=== PATIENT | female | born 1990 | race Caucasian/White ===

== ENCOUNTER 2016-10-05 09:39 | Emergency (ER) | payer OTHER, SELFPAY ==
[2016-10-05 09:57] VITALS: BP 122/90; PULSE 100; RESP 16; TEMP 98.2; O2SAT 100
--- NOTE | 2016-10-05 10:14 | C.PDOC ---
History Of Present Illness NEW ONSET R FACIAL SWELL THIS MORNING. 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 DENIES DENTAL PAIN, FEVER, OTHER ASSOC SX. PS WENT TO AN URGENT CARE, WAS GIVEN AUGMENTIN DOSE AND ADVISED TO GO TO ER. EXAM NONTOXIC NAD HEENT MILD SWELL R FACE LOWER. NO DENTAL ABSCESS, TEND. +MISSING FILLING TOP R INCISOR MDM ADVISED FU DENTIST. Time Seen by Provider: 10/05/16 10:00 Chief Complaint (Nursing): Abnormal Skin Integrity History Per: Patient History/Exam Limitations: no limitations Past Medical History Reviewed: Historical Data, Nursing Documentation, Vital Signs Vital Signs: Last Vital Signs Temp 98.2 F 10/05/16 09:53 Pulse 100 H 10/05/16 09:53 Resp 16 10/05/16 09:53 BP 122/90 10/05/16 09:53 Pulse Ox 100 10/05/16 10:23 - Medical History PMH: Back Problems (hernated disc) Surgical History: Back Surgery, Cholecystectomy Family History: States: Unknown Family Hx - Social History Hx Tobacco Use: No Hx Alcohol Use: No Hx Substance Use: No - Immunization History Hx Tetanus Toxoid Vaccination: Yes Hx Influenza Vaccination: No Hx Pneumococcal Vaccination: No Review Of Systems Except As Marked, All Systems Reviewed And Found Negative. Constitutional: Negative for: Fever ENT: Positive for: Other Cardiovascular: Negative for: Chest Pain Gastrointestinal: Negative for: Vomiting Musculoskeletal: Negative for: Back Pain Physical Exam - Physical Exam Appears: Non-toxic, No Acute Distress Skin: Warm, Dry, No Rash Head: Atraumatic, Swelling Eye(s): bilateral: Normal Inspection, PERRL Nose: Normal Oral Mucosa: Moist Lips: Normal Appearing Teeth: Other (MILD SWELL R FACE LOWER. NO DENTAL ABSCESS, TEND. +MISSING FILLING TOP R INCISOR) Neck: Normal ROM Chest: Symmetrical Cardiovascular: No Murmur Respiratory: No Accessory Muscle Use Extremity: Normal ROM Neurological/Psych: Oriented x3 ED Course And Treatment O2 Sat by Pulse Oximetry: 100 Progress - Data Reviewed Data Reviewed: Old records Medical Decision Making Medical Decision Making: ADVISED FU DENTIST. Disposition Counseled Patient/Family Regarding: Diagnosis, Need For Followup, Rx Given - Disposition Referrals: YOUR,DENTIST [Other] Disposition: HOME/ ROUTINE Disposition Time: 10:22 Condition: GOOD Prescriptions: Acetaminophen/Codeine [Tylenol/Codeine 300 MG/30 MG] 2 tab PO Q6H #20 tab Amoxicillin/Clavulanate [Augmentin 875 MG-125 MG] 1 tab PO BID #14 tab Ibuprofen [Motrin] 600 mg PO Q6 #30 tab Instructions: Dental Caries (ED) - Clinical Impression Clinical Impression: Facial swelling - Scribe Statement Aneglique Luna All medical record entries made by the Scribe were at my direction and personally dictated by me. I have reviewed the chart and agree that the record accurately reflects my personal performance of the history, physical exam, medical decision making, and the department course for this patient. I have also personally directed, reviewed, and agree with the discharge instructions and disposition.
== END 2016-10-05 10:45 | disposition home or self-care (01) ==
LOC: C.ER 09:39
DX: R22.0 Localized swelling, mass and lump, head (principal)

== ENCOUNTER 2018-07-03 21:45 | Emergency (ER) | payer BC, OTHER, SELFPAY ==
[2018-07-03] MEDS ORDERED: Sodium Chloride 0.9% 1,000 ML IV ONE (22:16)
--- NOTE | 2018-07-03 22:16 | C.PDOC ---
History Of Present Illness patient presents with sudden onset of rlq pain. No f/c. + nausea and 1 episode of vomiting. No trauma, heavy lifting. No dysuria. Time Seen by Provider: 07/03/18 22:15 Chief Complaint (Nursing): Abdominal Pain History Per: Patient History/Exam Limitations: no limitations Onset/Duration Of Symptoms: Hrs Current Symptoms Are (Timing): Worse Context: Other Severity: Severe Pain Scale Rating Of: 7 Location Of Pain/Discomfort: RLQ Radiation Of Pain To:: Other (groin) Quality Of Discomfort: Sharp, Stabbing Associated Symptoms: Nausea. denies: Fever, Chills Exacerbating Factors: None Alleviating Factors: None Last Bowel Movement: Today Recent travel outside of the [place]: No Abnormal Vaginal Bleeding: No Past Medical History Reviewed: Historical Data, Nursing Documentation, Vital Signs Vital Signs: Last Vital Signs Temp 97.5 F L 07/03/18 21:50 Pulse 80 07/03/18 21:50 Resp 14 07/03/18 21:50 BP 121/81 07/03/18 21:50 Pulse Ox 99 07/03/18 21:50 - Medical History PMH: Back Problems (hernated disc) Surgical History: Back Surgery, Cholecystectomy Family History: States: No Known Family Hx - Social History Hx Tobacco Use: No Hx Alcohol Use: No Hx Substance Use: No - Immunization History Hx Tetanus Toxoid Vaccination: Yes Hx Influenza Vaccination: No Hx Pneumococcal Vaccination: No Review Of Systems Constitutional: Negative for: Fever, Chills Cardiovascular: Negative for: Chest Pain Respiratory: Negative for: Shortness of Breath Gastrointestinal: Positive for: Nausea, Vomiting, Abdominal Pain Genitourinary: Negative for: Dysuria Musculoskeletal: Negative for: Back Pain Skin: Negative for: Rash Neurological: Negative for: Weakness Psych: Positive for: Anxiety Physical Exam - Physical Exam Appears: Non-toxic, In Acute Distress Skin: Warm, Dry Eye(s): bilateral: Normal Inspection Oral Mucosa: Moist Neck: Supple Chest: Symmetrical Cardiovascular: Rhythm Regular Respiratory: No Rales, No Rhonchi, No Wheezing Gastrointestinal/Abdominal: Soft, Tenderness (rlq), No Distention, No Guarding, No Rebound Back: Normal Inspection, No CVA Tenderness Extremity: Normal ROM Extremity: Bilateral: Atraumatic Neurological/Psych: Oriented x3 Gait: Steady ED Course And Treatment - Laboratory Results Result Diagrams: 07/03/18 22:32 07/03/18 22:32 O2 Sat by Pulse Oximetry: 99 Pulse Ox Interpretation: Normal Reevaluation Time: 02:39 Reassessment Condition: Improved Medical Decision Making Medical Decision Making: Upon provider reevaluation patient is feeling better, is medically stable, and requires no further treatment in the ED at this time. Patient will be discharged home with Rx for tramadol. Counseling was provided and all questions were answered regarding diagnosis and need for follow up withdr denney. There is agreement to discharge plan. Return if symptoms persist or worsen. Disposition Counseled Patient/Family Regarding: Studies Performed, Diagnosis, Need For Foll owup, Rx Given - Disposition Referrals: Huang Denney MD [Staff Provider] - Disposition: HOME/ ROUTINE Disposition Time: 22:16 Condition: FAIR Additional Instructions: Please return if symptoms recur. 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
[2018-07-03] MEDS ORDERED: Sodium Chloride 0.9% 1,000 ML ONE (22:23)
[2018-07-03 22:39] LABS: BASO # 0.2 K/uL (0.0-0.2); BASO % 1.2 % (0.0-2.0); EOS # 0.1 K/uL (0.0-0.7); EOS % 0.6 % (0.0-4.0); HEMOGLOBIN 14.5 g/dL (11.0-16.0); LYMPH # 1.4 K/uL (1.0-4.3); LYMPH % 8.4 % (20.0-40.0); MEAN CELL VOLUME 88.7 fL (81.0-99.0); MEAN CORPUSCULAR HEMOGLOBIN 28.8 pg (27.0-31.0); MEAN CORPUSCULAR HGB CONC 32.5 g/dL (33.0-37.0); MEAN PLATELET VOLUME 9.7 fL (7.2-11.7); MONO # 0.5 K/uL (0.0-0.8); MONO % 2.8 % (0.0-10.0); NEUT # 14.9 K/uL (1.8-7.0); PLATELET COUNT 241 K/uL (130-400); RBC 5.05 Mil/uL (3.80-5.20); RED CELL DISTRIBUTION WIDTH 12.7 % (11.5-14.5); WHITE BLOOD COUNT 17.1 K/uL (4.8-10.8)
[2018-07-03] MEDS ORDERED: Piperacillin/Tazobact 3.375 gm 100 ML IVPB STA (22:43)
[2018-07-03 22:48] LABS: PROTHROMBIN TIME 11.2 SECONDS (9.7-12.2)
[2018-07-03 22:52] LABS: ALB/GLOB RATIO 1.3 (1.0-2.1); ALBUMIN 4.5 g/dL (3.5-5.0); ALT/SGPT 21 U/L (9-52); AST/SGOT 21 U/L (14-36); BLOOD UREA NITROGEN 10 mg/dL (7-17); CALCIUM 9.3 mg/dl (8.6-10.4); GFR NON-AFRICAN AMERICAN > 60; LIPASE 38 U/L (23-300)
[2018-07-03 22:53] LABS: SQUAMOUS EPITHIAL 9 /hpf (0-5); URINE BACTERIA OCC (<OCC); URINE BILIRUBIN NEGATIVE (NEGATIVE); URINE BLOOD NEGATIVE (NEGATIVE); URINE CLARITY Hazy (Clear); URINE COLOR Yellow (YELLOW); URINE GLUCOSE (UA) NORMAL (Normal); URINE LEUKOCYTE ESTERASE 1+ Leu/uL (Negative); URINE PROTEIN 1+ mg/dL (NEGATIVE); URINE UROBILINOGEN NORMAL mg/dL (0.2-1.0)
[2018-07-03] MEDS ORDERED: Piperacillin/Tazobact 3.375 gm 100 ML IVPB ONE (22:56)
[2018-07-03 22:57] LABS: HCG,QUALITATIVE URINE NEGATIVE (NEGATIVE)
[2018-07-03 23:32] LABS: BANDS 6 % (0-2); LYMPHOCYTE 8 % (20-40); MONOCYTE 5 % (0-10); NEUTROPHIL 81 % (50-75); PLATELET ESTIMATE NORMAL (NORMAL); TOTAL CELLS COUNTED 100
[2018-07-04] MEDS ORDERED: Morphine 4 MG/ML VIAL ONE (00:17)
[2018-07-04 02:47] VITALS: RESP 20
[2018-07-04 02:48] VITALS: BP 128/79; PULSE 800; TEMP 97.2; O2SAT 98
--- NOTE | 2018-07-04 07:39 | CT ---
CT abdomen and pelvis HISTORY: Right lower quadrant abdominal pain. COMPARISON: None available. TECHNIQUE: Multiple contiguous axial images were performed through the abdomen and pelvis without the use of intravenous contrast. Subsequently, sagittal and coronal reformatted images were obtained. This CT exam was performed using one or more of the following dose reduction techniques: Automated exposure control, adjustment of the mA and/or kV according to patient size, and/or use of iterative reconstruction technique. Findings: Lung bases are grossly preserved. No pleural or pericardial effusion. Liver is preserved. Prior cholecystectomy. Postsurgical prominence of the common bile duct. Spleen is preserved. Adrenal glands are preserved. Mild heterogeneity of the pancreas. Evaluation of the pancreas is limited on this noncontrast study. Upper abdominal bowel grossly preserved. Right kidney: Mild right hydroureteronephrosis extending to the level of the pelvis where there appears to be some mass effect on the distal ureter from a large right complex ovarian cystic lesion. Left Kidney: No calculi or hydronephrosis. Urinary bladder is grossly preserved. Heterogeneous uterus. Large complex right ovarian cystic lesion measuring 10.9 x 8.8 x 11.2 centimeters. There are multiple thickened and nodular enhancing components in the cyst as well as prominent calcified septations. Varying attenuation within the cysts/cystic lesions. This is of uncertain clinical etiology and may represent a complex multi septated and nodular cyst with associated calcifications versus teratoma versus cystic ovarian neoplasm versus additional etiology. Correlation with pelvic MRI would be helpful for further evaluation if clinically indicated. Under distended descending colon. Appendix is partially imaged and appears grossly preserved. Few shotty para-aortic and inguinal lymph nodes. Few shotty mesenteric lymph nodes. Degenerative changes in the osseous structures with large posterior disc osteophyte complex at the L4-5 level of the lumbar spine. This would be better delineated with an MRI of the lumbar spine. Impression: 1. Large complex right ovarian cystic lesion measuring 10.9 x 8.8 x 11.2 centimeters. There are multiple thickened and nodular enhancing components in the cyst as well as prominent calcified septations. Varying attenuation within the cysts/cystic lesions. This is of uncertain clinical etiology and may represent a complex multi septated and nodular cyst with associated calcifications versus teratoma versus cystic ovarian neoplasm versus additional etiology. Correlation with pelvic MRI would be helpful for further evaluation if clinically indicated. 2. Mild right hydroureteronephrosis extending to the level of the pelvis where there appears to be some mass effect on the distal ureter from the large right complex ovarian cystic lesion. Clinical correlation. 3. Mild heterogeneity of the pancreas. Evaluation of the pancreas is limited on this noncontrast study. If there is concern for pancreatic pathology, consider correlation with contrast-enhanced CT scan. 4. Large posterior disc osteophyte complex at the L4-5 level of the lumbar spine. This would be better delineated with an MRI of the lumbar spine. Additional findings as above. A preliminary report was generated at 2:37 a.m. on 07/04/2018 by [employer].
== END 2018-07-04 03:19 | disposition home or self-care (01) ==
LOC: C.ER 21:45
DX: R10.31 Right lower quadrant pain (principal); D27.0 Benign neoplasm of right ovary
CPT/HCPCS: 74176; 80053; 81001; 83690; 84703; 85025; 85610; 85730; 96365; 96375; 96376; 99285; J1885; J2270; J2405; J2543; J7030